=== PATIENT | male | born 1995 | race Caucasian/White ===

== ENCOUNTER 2017-07-23 20:26 | Emergency (ER) | payer MEDICAID ==
[2017-07-23 20:31] VITALS: BP 152/82; PULSE 89; RESP 20; TEMP 98.8; O2SAT 97
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
== END 2017-07-23 22:21 | disposition home or self-care (01) ==
DX: S62.346A Nondisplaced fracture of base of fifth metacarpal bone, right hand, initial encounter for closed fracture (principal); F17.200 Nicotine dependence, unspecified, uncomplicated; Y04.0XXA Assault by unarmed brawl or fight, initial encounter

== ENCOUNTER 2019-03-20 19:39 | Emergency (ER) | payer OTHER, MEDICAID | END 2019-03-20 20:00 | disposition home or self-care (01) ==

== ENCOUNTER 2019-03-23 09:52 | Emergency (ER) | payer OTHER, MEDICAID | END 2019-03-23 11:17 | disposition home or self-care (01) ==

== ENCOUNTER 2019-04-14 10:26 | Emergency (ER) | payer OTHER, MEDICAID ==
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
[2019-04-14 10:33] VITALS: BP 129/73
== END 2019-04-14 11:07 | disposition home or self-care (01) ==
DX: S39.012A Strain of muscle, fascia and tendon of lower back, initial encounter (principal); V89.2XXA Person injured in unspecified motor-vehicle accident, traffic, initial encounter